=== PATIENT | male | born 1970 | race Caucasian/White ===

== ENCOUNTER 2016-08-07 09:48 | Outpatient (CLI) | payer BC, MEDICARE ==
[2016-08-07 12:32] LABS: Hemoglobin A1c 7.9 % (4.0-6.0)
[2016-08-07 12:54] LABS: Anion Gap 15 mmol/L (10-20); BUN (Urea Nitrogen) 34 mg/dL (8.9-20.6); Calc. Creatinine Clearance 0 mL/min (70-130); Calcium 9.3 mg/dL (7.8-10.44); Carbon Dioxide 23 mmol/L (22-29); Chloride 106 mmol/L (98-107); Estimated GFR-MDRD 39; LDL Cholesterol, Calculated 159 mg/dL
== END 2016-08-07 09:49 | disposition home or self-care (01) ==
LOC: NAVSJIPCSP 09:48
PROVIDERS: ATTEND Internal Medicine
DX: E78.5 Hyperlipidemia, unspecified (principal); E11.22 Type 2 diabetes mellitus with diabetic chronic kidney disease; N18.3 Chronic kidney disease, stage 3 (moderate); Z79.899 Other long term (current) drug therapy
CPT/HCPCS: 36415; 80048; 80061; 83036

== ENCOUNTER 2016-11-13 10:14 | Outpatient (CLI) | payer BC, MEDICARE ==
[2016-11-13 13:26] LABS: Hemoglobin A1c 7.7 % (4.0-6.0)
== END 2016-11-13 10:15 ==
LOC: NAVSJIPCSP 10:14
PROVIDERS: ATTEND Internal Medicine
DX: E78.5 Hyperlipidemia, unspecified (principal); E11.22 Type 2 diabetes mellitus with diabetic chronic kidney disease
CPT/HCPCS: 36415; 80061; 83036